=== PATIENT | male | born 1940 | race Caucasian/White ===

== ENCOUNTER 2019-10-17 14:36 | Inpatient (IN) | payer MEDICARE ==
[2019-10-17 15:43] LABS: #Eosinphils 0.2 thou/uL (0.0-0.7); #Lymphocytes 1.1 thou/uL (1.20-3.40); #Monocytes 0.4 thou/uL (0.11-0.59); #Neutrophils 4.5 thou/uL (1.40-6.50); %Basophils 0.4 % (0.0-1.0); %Lymphocytes 18.2 % (21.0-51.0); %Monocytes 6.5 % (0.0-10.0); %Neutrophils 71.9 % (42.0-75.0); Hemoglobin 11.7 g/dL (14.0-18.0); Mean Corpuscular HGB CONC 34.4 g/dL (32.0-36.0); Mean Corpuscular Hemoglobin 30.5 pg (27.0-31.0); Mean Corpuscular Volume 88.7 fL (78.0-98.0); Mean Platelet Volume 7.2 fL (7.4-10.4); Platelet Count 203 thou/uL (130-400); RBC Distribution Width 11.1 % (11.5-14.5); Red Blood Cell (RBC) Count 3.84 mill/uL (4.70-6.10); White Blood Cell (WBC) Count 6.3 thou/uL (4.8-10.8)
[2019-10-17 16:02] LABS: Anion Gap 11 mmol/L (10-20); BUN (Urea Nitrogen) 25 mg/dL (8.4-25.7); Calc. Creatinine Clearance 0 mL/min (70-130); Carbon Dioxide 30 mmol/L (23-31); Chloride 102 mmol/L (98-107); Estimated GFR-MDRD 72; Glucose 225 mg/dL (83-110); Potassium 4.6 mmol/L (3.5-5.1); Sodium 138 mmol/L (136-145)
--- NOTE | 2019-10-17 16:13 | RAD ---
Exam:3 views left foot HISTORY: Evaluate for osteomyelitis. COMPARISON: None FINDINGS: Amputation of the first and second digit. There is soft tissue swelling and subcutaneous em physema at the distal aspect of the first and second digit. There are chronic destructive changes involving the proximal interphalangeal joint space of the third digit, distal interphalangeal joint space of the fourth digit and metatarsophalangeal joint space of the third and fourth digit. There is soft tissue swelling involving the fifth digit. Subtle lucency is noted along the fifth meta tarsal head and proximal aspect of the proximal phalanx of the fifth digit. Questionable soft tissue ulceration of the distal aspect of the fifth digit. . Lisfranc alignment is maintained. No evidence of a midfoot or hindfoot fracture IMPRESSION: 1. Possible osteomyelitis and cellulitis involving the fifth digit as described above. 2. Presumed chronic changes involving the first through fourth digit. 2. Questionable subcutaneous emphysema along the distal aspect of the first and second digit. Transcribed Date/Time: 10/17/2019 5:11 PM
--- NOTE | 2019-10-17 16:44 | PDOC.FM ---
- Objective Result Diagrams: 10/17/19 15:35 10/17/19 15:35
--- NOTE | 2019-10-17 16:51 | PDOC.FPRHP ---
- History of Present Illness Chief Complaint: Left foot ulcer History of Present Illness: Patient is a 79 y/o male PMH significant for DM2, HTN, HLD, and a HX of [place] treated with CABG treated with AICD and Placemaker placement who presents to the ED for left foot pain. The patient states that he scraped his left 4th toe several weeks ago and that his toe slowly "got infected". He states that it turned black and oozed red blood from time to time, but never caused severe pain. He was unsure if it had a bad smell. He does not check his feet often and could not comment on if he had noticed any erythema or streaking. He admits to occasional pain in his foot that is slightly increased from baseline, but denies any fevers, chills, N/V, ABD pain or recent falls / difficulty walking. The patient states that he had a seen a surgeon FABIANA Shi and was supposed to have it amputated last week, but that he missed his appointment and that he hoped that "we could take care of it." The patient had all of the toes on his right foot and the 1st and and 2nd toes on his left foot previously amputated. ED Course: BMP: Significant for Glucse (225) CBC: Significant for H.7 / Hct 34.1 Lactic Acid: 0.9 Wound Cultures: Pending X-Ray: Osteomyelitis and emphysema of the 5th toe, chronic changes in the 4th toe. - Allergies/Adverse Reactions Allergies Allergy/AdvReac Type Severity Reaction Status Date / Time cephalexin [From Keflex] Allergy Verified 10/18/19 06:13 - Home Medications Medication Instructions Recorded Confirmed Type Aspirin [Ecotrin Low Strength] 81 mg PO DAILY 03/11/17 10/17/19 History Carvedilol [Coreg] 12.5 mg PO BID 03/11/17 10/17/19 History Lovastatin 20 mg PO QPM- 03/11/17 10/17/19 History Multivitamin [Daily Multiple 1 tab PO DAILY 03/11/17 10/17/19 History Vitamin] glipiZIDE [Glucotrol] 10 mg PO BID 03/11/17 10/17/19 History metFORMIN HCl 1,000 mg PO BID- 03/11/17 10/17/19 History - History PMHx: DMII, Hx of Prostate Cancer s/p Radiation, HLD, HTN PSHx: Multiple Toe Amputations, CABG, AICD/Pacemaker Placement FHx: DMII (Father), Lung Cancer (Mother) Social: Former smoker (Quit in 1983), Denies alcohol, drug use. Retired - used to work for the [employer] - Review of Systems General: denies: fever/chills, fatigue Respiratory: reports: shortness of breath. denies: cough Cardiovascular: denies: chest pain, edema Gastrointestinal: denies: nausea, vomiting, abdominal pain Skin: reports: lesions (foot ulcer) Musculoskeletal: reports: pain, stiffness Neurological: reports: other (Patient denied a Hx of traumatic falls) - Vital signs BP: 153/91 HR: 80 RR: [18] Tmax: [97.7] Pox: 100% on Room Air Wt: [65 kg] - Physical Exam Constitutional: NAD, awake, alert and oriented, well developed HEENT: normocephalic and atraumatic, PERRLA, conjunctiva clear, no scleral icterus, grossly normal vision, grossly normal hearing, normal nasal mucosa, MMM Neck: supple, FROM, trachea midline, no bruits Chest: no-tender to palpation, no lesions Heart: RRR, normal S1/S2, no murmurs/rubs/gallops, pulses present (+2 at Radial Arteries. Popliteal Pulse +2 on right - absent on left), no edema Lungs: CTAB, no respiratory distress, good air movement, no rales/rhonchi, no wheezing, no retractions Abdomen: soft, non-tender, bowel sounds present, no masses/distention, no hernias Musculoskeletal: ROM grossly normal, other (See HPI for multiple MSK abnormalities) Neurological: no focal deficit, CN II-XII intact Skin: other (Left 4th toe appeared black - no obvious drainage or bleeding. Minimal TTP. Foul odor.) Psychiatric: normal mood and affect, intact recent and remote memory FMR H&P: Results - Labs Result Diagrams: 10/17/19 15:35 10/17/19 15:35 Lab results: WBC 6.3 thou/uL (4.8-10.8) 10/17/19 15:35 Hgb 11.7 g/dL (14.0-18.0) L 10/17/19 15:35 Hct 34.1 % (42.0-52.0) L 10/17/19 15:35 MCV 88.7 fL (78.0-98.0) 10/17/19 15:35 Plt Count 203 thou/uL (130-400) 10/17/19 15:35 Neutrophils % 71.9 % (42.0-75.0) 10/17/19 15:35 Sodium 138 mmol/L (136-145) 10/17/19 15:35 Potassium 4.6 mmol/L (3.5-5.1) 10/17/19 15:35 Chloride 102 mmol/L (98-107) 10/17/19 15:35 Carbon Dioxide 30 mmol/L (23-31) 10/17/19 15:35 BUN 25 mg/dL (8.4-25.7) 10/17/19 15:35 Creatinine 1.01 mg/dL (0.7-1.3) 10/17/19 15:35 Glucose 225 mg/dL (83-110) H 10/17/19 15:35 Lactic Acid 0.9 mmol/L (0.5-2.2) 10/17/19 15:35 Calcium 9.0 mg/dL (7.8-10.44) 10/17/19 15:35 - Radiology Interpretation Other Status: image reviewed by me, report reviewed by me (See ED Course) FMR H&P: A/P - Problem List (1) HTN (hypertension) Current Visit: Yes Status: Acute Code(s): I10 - ESSENTIAL (PRIMARY) HYPERTENSION (2) HLD (hyperlipidemia) Current Visit: Yes Status: Acute Code(s): E78.5 - HYPERLIPIDEMIA, UNSPECIFIED (3) Diabetes mellitus type 2 with complications, uncontrolled Current Visit: Yes Status: Acute Code(s): E11.8 - TYPE 2 DIABETES MELLITUS WITH UNSPECIFIED COMPLICATIONS; E11.65 - TYPE 2 DIABETES MELLITUS WITH HYPERGLYCEMIA (4) Osteomyelitis Current Visit: Yes Status: Acute Code(s): M86.9 - OSTEOMYELITIS, UNSPECIFIED (5) CAD (coronary artery disease) Current Visit: Yes Status: Acute Code(s): I25.10 - ATHSCL HEART DISEASE OF [place] CORONARY ARTERY W/O ANG PCTRS (6) PVD (peripheral vascular disease) Current Visit: Yes Status: Acute Code(s): I73.9 - PERIPHERAL VASCULAR DISEASE, UNSPECIFIED - Plan Patient is a 79 y/o male with a PMH significant for poorly controlled DM2 who presents to the ED with left foot pain. 1. Osteomyelitis -Confirmed via imaging - no additional imaging required -Patient was afebrile w/o an elevated WBC -Lactic Acid: 0.9 -ESR: Pending -Surgery: Consulted, planning to operate this PM or tomorrow AM -LR @ 100 ml/hr -s/p Zosyn and Vancomycin - will continue per Surgery recs -Plan for Wound Cultures following surgical intervention -PT/OT: Consulted -Orthotic Shoe Consult: Pending 2. DM2 -Patient states that his BG is typically between 110-140 -Blood Glucose 225 on admission -HgA1C: Pending -C-Peptide: Pending -Mild SSI - will hold home Metformin and Glipizide for now -Accuchecks Q4H -Hypoglycemia Protocol 3. HTN -Continue home medication regimen 4. HLD -Continue home medication regimen 5. CAD -Continue home medication regimen 6. PVD -Likely contributing factor to #1 -MAR: Pending PCP: CC Code: Full Activity: Ad ray w/ Chair Diet: NPO - CC on 10/17 VTE PPx: SCDs - Holding Anticoagulation until after Surgery Dispo: Patient is currently stable and admitted to the Medical Floor for Osteomyelitis. Will plan for Surgery this PM or tomorrow AM depending on Surgery availability. Await labs and cultures as per above and continue to manage chronic medical conditions. Expected LOS < 48H. FMR H&P: Upper Level - Pertinent history 79yo male with uncontrolled DMII presents with left foot ulcer that first appeared 2 months ago, 2 weeks ago became infected. Saw a surgeon Dr Pham in [place] 1 week ago and reports he had a piece of bone removed at that time. He recommended an amputation but pt was unable to arrange transportation back to surgeon. Reports pain in foot and purulent discharge. Denies fever, chills. - Plan Date/Time: 10/17/19 1649 PE: General: NAD Pulm: CTA B/l, No resp distress CV: RRR, no murmurs Abdomen: Nontender Extremities: Left foot with Amputations of first 2 digits. 4th toe malodorous, black. Not tender to palpation. No purulent discharge. No palpable dorsalis pedis Right foot: Undetectable dorsalis pedis pulse. Amputations on digits 1-5 A/P: Arterial insuff ulcer with likely osteomyelitis - Likely arterial insufficiency ulcer after minor trauma to toe and inability to meet demands of healing tissue that has lead to osteomyelitis - Xray with possible osteomyelitis and cellulitis involving the 5th digit, chronic changes of 4th digit. Questionable subQ emphysema along distal aspect of first 2 digits. Concerning for gangrene - Nml WBC, VSS. - s/p Zosyn in the ED. Will continue and add Vanc - Will obtain MAR, ordered ESR - General Surgery, Dr Mcgovern consulted from ED - Admit to surgery floor, NPO awaiting Dr Kim recs DMII - Will check A1c. NPO. Accuchecks q4hr until CC diet placed. Hypoglycemic protocol ordered. Continue home medications. I, Kelly Luna, have evaluated this patient and agree with findings/plan as outlined by director international resident. Pertinent changes/additions are listed here. Addendum - Attending - Attending Attestation Date/Time: 10/18/19 0900 I personally evaluated the patient and discussed the management with Dr. Vigil. I agree with the History, Examination, Assessment and Plan documented above with any addition or exceptions noted below.
[2019-10-17] MEDS ORDERED: Piperacillin/Tazobactam 3.375 GM VIAL ONE (17:06)
[2019-10-17] MEDS ORDERED: Vancomycin HCl 1.25 GM in Sodium Chloride 0.9% 250 ML 250 ML IVPB SCH (18:30)
[2019-10-17] MEDS ORDERED: HumaLOG 300 UNITS/3 ML VIAL SC PRN ×2 (18:46→21:31)
--- NOTE | 2019-10-17 20:54 | PDOC.BPN ---
- Brief Progress Note Date/Time: 10/17/192052 I personally evaluated the patient and discussed the management with Dr. Vigil. H&P is pending. I agree with the History, Examination, Assessment and Plan as discussed.
[2019-10-17] MEDS ORDERED: Dextrose 5% in Water 1,000 ML IV PRN (21:31)
[2019-10-17] MEDS ORDERED: Dextrose 50% Abboject 50 ML SYRINGE SLOW IVP PRN (21:31)
[2019-10-17] MEDS ORDERED: Acetaminophen 325 MG TAB PO PRN (21:31)
[2019-10-17 21:43] VITALS: BMI 23.4
[2019-10-17 22:00] LABS: Hemoglobin A1c 6.7 % (4.0-6.0)
[2019-10-17] MEDS: Famotidine 20 MG TAB PO SCH (22:46)
[2019-10-17] MEDS: HumaLOG 300 UNITS/3 ML VIAL SC PRN (22:46)
[2019-10-17] MEDS: Piperacillin/Tazobactam 3.375 GM in Sodium Chloride 0.9% 100 ML IVPB SCH (22:57)
--- NOTE | 2019-10-18 00:11 | CON ---
DATE OF CONSULTATION: HISTORY OF PRESENT ILLNESS: Stephen Francisco is a 79-year-old male, who lives near [place], [place], has had a previous amputation of his left first and second toes done elsewhere. He has had a right transmetatarsal amputation. He has remaining left 3rd, 4th and 5th toes with his 4th toe gangrene. X-ray obtained reveal osteomyelitis of left 4th toe with some soft tissue changes. Physically, he has a strongly dopplerable dorsalis pedis, and posterior tibial pulses. He has gangrene of left 4th toe. There is minimal cellulitis. Plan is to amputate the left 3rd, 4th and 5th toes with primary closure and wound left open for healing and physical findings. He desires amputation of the 3rd and 5th toes due to acknowledgement that these will cause problems up the road. He has not had problems with his TMA right foot. Since that was done, he wants to definitively get rid of these toes. ALLERGIES: CEPHALEXIN. SOCIAL HISTORY: Tobacco cessation in 1983. Alcohol, rarely. MEDICATIONS: 1. Metformin 1000 b.i.d. 2. Glipizide 10 b.i.d. 3. Sacubitril/valsartan 2 tablets b.i.d. 4. Actos 15 daily. 5. Multivitamins daily. 6. Lovastatin 20 mg a day. 7. Vitamin B12. 8. Carvedilol 6.25 mg b.i.d. 9. Beta-carotene. 10. Aspirin 81 mg a day. PAST SURGICAL HISTORY: Coronary artery bypass grafting, four vessels, 13 years ago in [place]. He had a left leg saphenous vein harvest. He has a pacemaker defibrillator in left chest. He has had prostate cancer and radiation therapy. He had colonoscopy just over a year ago in [place]. FAMILY HISTORY: Father had diabetes. Mother had lung cancer. The patient was incarcerated until 2 years ago. He has been 10 years incarcerated. He is 2 years out of custodial. 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 REVIEW OF SYSTEMS: Ten-point noncontributory. PHYSICAL EXAMINATION: VITAL SIGNS: Blood pressure 161/74, pulse 80. HEAD, EARS, EYES, NOSE, AND THROAT: Unremarkable. LUNGS: Clear to auscultation. CARDIAC: Regular rate and rhythm without murmur or gallop. ABDOMEN: Soft and nontender. EXTREMITIES: Palpable femoral pulses bilaterally. Strongly palpable dorsalis pedis, and posterior tibial pulses both feet. Transmetatarsal amputation of right foot well healed. Left foot, previous amputation of 1st and second toe, gangrene in left 4th toe, minimal cellulitis. LABORATORY DATA: White count 6, hemoglobin 11.7. Basic metabolic profile normal. Glucose 225. ASSESSMENT AND PLAN: 1. Dry gangrene, left fourth toe. We would plan amputation of left third, fourth and fifth toes tomorrow. He understands risks, benefits, and consents. 2. Coronary artery disease, stable. 3. Pacemaker defibrillator present. 4. Diabetes mellitus. 5. Hypertension. 6. Elevated cholesterol. Job ID: [id number]
[2019-10-18] MEDS: Carvedilol 6.25 MG TAB PO SCH ×2 (05:24→20:43)
[2019-10-18] MEDS: Piperacillin/Tazobactam 3.375 GM in Sodium Chloride 0.9% 100 ML IVPB SCH ×4 (05:25→23:17)
--- NOTE | 2019-10-18 06:46 | PDOC.FM ---
- Subjective Subjective: Patient was resting comfortably in his hospital bed at the time of evaluation. He denied any acute overnight events such as fevers, chills, N/V, CP or SOB. He stated that his foot pain had not worsened acutely. - Objective Vital Signs & Weight: Vital Signs (12 hours) Temp Pulse Resp BP BP Pulse Ox 10/18/19 05:24 163/80 H 10/18/19 04:29 97.9 F 67 16 163/80 H 98 10/17/19 23:42 98.0 F 67 18 153/74 H 95 10/17/19 20:30 98.0 F 92 17 146/80 H 95 Weight Weight 63.911 kg I&O: 10/16/19 10/17/19 10/18/19 06:59 06:59 06:59 Intake Total 900 Balance 900 Result Diagrams: 10/17/19 15:35 10/17/19 15:35 Phys Exam - Physical Examination Constitutional: NAD HEENT: moist MMs, sclera anicteric, oral pharynx no lesions Neck: supple, full ROM Respiratory: no rales, no rhonchi Scattered wheezes Cardiovascular: RRR, no significant murmur, no rub Gastrointestinal: soft, non-tender, no distention, positive bowel sounds Musculoskeletal: no edema Unable to palpate pulses in distal extremities Neurological: non-focal, moves all 4 limbs Psychiatric: normal affect Deviation from normal: No change in LLE from previous exam Dx/Plan (1) HTN (hypertension) Code(s): I10 - ESSENTIAL (PRIMARY) HYPERTENSION Status: Acute (2) HLD (hyperlipidemia) Code(s): E78.5 - HYPERLIPIDEMIA, UNSPECIFIED Status: Acute (3) Diabetes mellitus type 2 with complications, uncontrolled Code(s): E11.8 - TYPE 2 DIABETES MELLITUS WITH UNSPECIFIED COMPLICATIONS; E11.65 - TYPE 2 DIABETES MELLITUS WITH HYPERGLYCEMIA Status: Acute (4) Osteomyelitis Code(s): M86.9 - OSTEOMYELITIS, UNSPECIFIED Status: Acute (5) CAD (coronary artery disease) Code(s): I25.10 - ATHSCL HEART DISEASE OF [place] CORONARY ARTERY W/O ANG PCTRS Status: Acute (6) PVD (peripheral vascular disease) Code(s): I73.9 - PERIPHERAL VASCULAR DISEASE, UNSPECIFIED Status: Acute - Plan Plan: Patient is a 79 y/o male with a PMH significant for poorly controlled DM2 who presents to the ED with left foot pain. 1. Osteomyelitis -Confirmed via X-Ray - no additional imaging required -Patient was afebrile w/o an elevated WBC -Lactic Acid: 0.9 -ESR: Pending -Surgery: Consulted, planning to operate this AM -LR @ 100 ml/hr -s/p Zosyn and Vancomycin - will continue per Surgery recs -Plan for Wound Cultures following surgical intervention -PT/OT: Consulted -Orthotic Shoe Consult: Pending 2. DM2 -Patient states that his BG is typically between 110-140 -Blood Glucose 225 on admission -HgA1C: 6.7 -C-Peptide: Pending -Mild SSI - will hold home Glipizide for now -Accuchecks Q4H -Hypoglycemia Protocol 3. HTN -Continue home medication regimen 4. HLD -Continue home medication regimen 5. CAD -Continue home medication regimen 6. PVD -Likely contributing factor to #1 -MAR: Pending PCP: CC Code: Full Activity: Ad ray w/ Chair Diet: NPO - CC on 10/17 VTE PPx: SCDs - Holding Anticoagulation until after Surgery Dispo: Patient is currently stable and admitted to the Medical Floor for Osteomyelitis. Will plan for surgery today - await additional labs and cultures as per above and continue to manage chronic medical conditions. Expected LOS < 48H. Addendum - Attending - Attending Attestation Date/Time: 10/18/19 6065 I personally evaluated the patient and discussed the management with Dr. Vigil. I agree with the History, Examination, Assessment and Plan documented above with any addition or exceptions noted below.
[2019-10-18] MEDS ORDERED: Lactated Ringer's 1,000 ML IV SCH (08:00)
[2019-10-18] MEDS: Multivit, Therapeutic 1 TAB PO SCH (08:48)
[2019-10-18] MEDS: metFORMIN 500 MG TAB PO SCH ×2 (08:48→17:01)
[2019-10-18] MEDS: Famotidine 20 MG TAB PO SCH ×2 (08:48→20:42)
[2019-10-18] MEDS: Aspirin 81 mg Enteric Coated Tablet PO SCH (08:48)
[2019-10-18] MEDS ORDERED: PROPOFOL 200 MG/20 ML VIAL ONE (10:30)
[2019-10-18] MEDS ORDERED: Bupivacaine HCl 0.5%/Epinephrine 1:200,000/PF 30 ml Vial ONE (10:30)
[2019-10-18] MEDS ORDERED: Fentanyl 100 MCG/2 ML VIAL ONE (11:22)
[2019-10-18] MEDS ORDERED: Midazolam HCl 2 mg/2 ml Vial ONE (12:55)
[2019-10-18] MEDS ORDERED: Simvastatin 20 MG TAB PO SCH (17:00)
[2019-10-18] MEDS ORDERED: Vancomycin HCl 1 GM in Premix Bag 1 BAG IVPB SCH (17:00)
--- NOTE | 2019-10-18 17:17 | OP ---
DATE OF PROCEDURE: 10/18/2019 PREOPERATIVE DIAGNOSIS: Diabetic gangrene, left fourth toe, previous amputation of left first and second toe. POSTOPERATIVE DIAGNOSIS: Diabetic gangrene, left fourth toe, previous amputation of left first and second toe. PROCEDURES PERFORMED: Transmetatarsal amputation of left foot with amputation of toes 3, 4, 5, and metatarsals this hospitalization primary closure. ANESTHESIA: Regional, TIVA. DESCRIPTION OF PROCEDURE: The patient was taken to the operating room, where under regional, TIVA anesthesia, left lower extremity was prepared and draped in routine fashion. Incision was made, preserving as much skin as possible, amputating the left 3rd, 4th and 5th toes, carried down the skin and subcutaneous tissue, resecting the phalanx and the metatarsals with rongeurs and bone cutters, irrigated wound, debriding connective tissue sharply, resecting good blood supply noted. Wound irrigated. Good hemostasis ensured. Subcutaneous tissue was approximated with 3-0 Monocryl, skin with 3-0 Prolene. Sterile dressing was applied. The patient will be discharged home tomorrow, 10/19/2019. He can remove his dressings 10/21/2019 and begin washing the wound daily with soap and water and apply antibiotic ointment, Telfa, and wrap. He will be sent home with orthotic shoe. Follow up in my office in 2 weeks. Job ID: [id number]
[2019-10-18] MEDS: HumaLOG 300 UNITS/3 ML VIAL SC PRN (20:46)
[2019-10-19] MEDS: traMADol HCl 50 MG TAB PO PRN ×3 (02:46→11:06)
[2019-10-19] MEDS: Acetaminophen 500 MG TAB PO PRN ×2 (05:31→12:06)
[2019-10-19] MEDS: Piperacillin/Tazobactam 3.375 GM in Sodium Chloride 0.9% 100 ML IVPB SCH ×2 (05:32→11:03)
[2019-10-19] MEDS ORDERED: Ciprofloxacin 500 MG TAB PO SCH (06:00)
--- NOTE | 2019-10-19 06:25 | PDOC.FM ---
- Subjective Subjective: Patient was resting comfortably in his hospital bed at the time of evaluation. He denied shannan cute overnight events such as SOB, CP or N/V. He stated that he was ready to go home. - Objective Vital Signs & Weight: Vital Signs (12 hours) Temp Pulse Resp BP BP Pulse Ox 10/19/19 04:20 98.2 F 77 18 165/84 H 95 10/18/19 23:22 98.7 F 63 16 115/55 L 96 10/18/19 20:43 159/75 H 10/18/19 19:33 98.0 F 83 18 159/75 H 96 Weight Weight 63.911 kg I&O: 10/17/19 10/18/19 10/19/19 06:59 06:59 06:59 Intake Total 900 600 Balance 900 600 Result Diagrams: 10/19/19 08:54 10/19/19 08:54 Phys Exam - Physical Examination Constitutional: NAD HEENT: moist MMs, sclera anicteric, oral pharynx no lesions Neck: full ROM Respiratory: no wheezing, no rales, no rhonchi, clear to auscultation bilateral Cardiovascular: RRR, no significant murmur, no rub Gastrointestinal: soft, non-tender, no distention, positive bowel sounds Musculoskeletal: no edema Bandage in place over RLE - minimal strike-through noted without streaking Neurological: non-focal, moves all 4 limbs Psychiatric: normal affect Skin: no rash Dx/Plan (1) HTN (hypertension) Code(s): I10 - ESSENTIAL (PRIMARY) HYPERTENSION Status: Acute (2) HLD (hyperlipidemia) Code(s): E78.5 - HYPERLIPIDEMIA, UNSPECIFIED Status: Acute (3) Diabetes mellitus type 2 with complications, uncontrolled Code(s): E11.8 - TYPE 2 DIABETES MELLITUS WITH UNSPECIFIED COMPLICATIONS; E11.65 - TYPE 2 DIABETES MELLITUS WITH HYPERGLYCEMIA Status: Acute (4) Osteomyelitis Code(s): M86.9 - OSTEOMYELITIS, UNSPECIFIED Status: Acute (5) CAD (coronary artery disease) Code(s): I25.10 - ATHSCL HEART DISEASE OF [place] CORONARY ARTERY W/O ANG PCTRS Status: Acute (6) PVD (peripheral vascular disease) Code(s): I73.9 - PERIPHERAL VASCULAR DISEASE, UNSPECIFIED Status: Acute - Plan Plan: Patient is a 79 y/o male with a PMH significant for poorly controlled DM2 who presents to the ED with left foot pain. 1. Osteomyelitis -Likely complicated by polymicrobial infection - Gangrene suspected -Confirmed via X-Ray - no additional imaging performed -Patient was afebrile w/o an elevated WBC -Lactic Acid: 0.9 -ESR: Pending -Surgery: Amputation performed on 10/18 w/ ABx augmented to include Bactrim and Cipro - recs appreciated -LR @ 100 ml/hr -s/p Zosyn and Vancomycin - will continue per Surgery recs -Wound Cultures: Pending -PT/OT: Consulted -Orthotic Shoe Consult: Pending 2. DM2 -Patient states that his BG is typically between 110-140 -Blood Glucose 225 on admission -HgA1C: 6.7 -C-Peptide: Pending -Mild SSI - will hold home Glipizide for now -Accuchecks Q4H -Hypoglycemia Protocol 3. HTN -Continue home medication regimen 4. HLD -Continue home medication regimen 5. CAD -Continue home medication regimen 6. PVD -Likely contributing factor to #1 -MAR: Pending PCP: CC Code: Full Activity: Ad ray w/ Chair Diet: NPO - CC on 10/17 VTE PPx: SCDs - Holding Anticoagulation until after Surgery Dispo: Patient is currently stable and admitted to the Medical Floor for Osteomyelitis. No complications noted in Surgery op note - await cultures as per above with ABx. Continue to manage chronic medical conditions. Await PT/OT eval and recs. Expected LOS < 48H. Addendum - Attending - Attending Attestation Date/Time: 10/19/19 1228 I personally evaluated the patient and discussed the management with Dr. Vigil. I agree with the History, Examination, Assessment and Plan documented above with any addition or exceptions noted below. S/p removal digis 3-5. Doing well. BS controlled. D/c IV Abx and complete oral regimen per surgery.
[2019-10-19] MEDS: Aspirin 81 mg Enteric Coated Tablet PO SCH (07:58)
[2019-10-19] MEDS: Famotidine 20 MG TAB PO SCH (07:58)
[2019-10-19] MEDS: Carvedilol 6.25 MG TAB PO SCH (07:58)
[2019-10-19] MEDS: metFORMIN 500 MG TAB PO SCH (07:58)
[2019-10-19] MEDS: Multivit, Therapeutic 1 TAB PO SCH (07:59)
[2019-10-19] MEDS ORDERED: Sulfameth/Trimethoprim DS 800-160mg TAB PO SCH (09:00)
[2019-10-19 09:07] LABS: #Eosinphils 0.2 thou/uL (0.0-0.7); #Lymphocytes 0.5 thou/uL (1.20-3.40); #Monocytes 0.5 thou/uL (0.11-0.59); #Neutrophils 5.2 thou/uL (1.40-6.50); %Basophils 0.6 % (0.0-1.0); %Eosinophils 3.7 % (0.0-10.0); %Monocytes 8.4 % (0.0-10.0); %Neutrophils 80.4 % (42.0-75.0); Hemoglobin 11.4 g/dL (14.0-18.0); Mean Corpuscular Hemoglobin 29.6 pg (27.0-31.0); Mean Corpuscular Volume 89.9 fL (78.0-98.0); Mean Platelet Volume 7.3 fL (7.4-10.4); Platelet Count 143 thou/uL (130-400); RBC Distribution Width 11.1 % (11.5-14.5); Red Blood Cell (RBC) Count 3.83 mill/uL (4.70-6.10); White Blood Cell (WBC) Count 6.5 thou/uL (4.8-10.8)
[2019-10-19 09:28] LABS: Anion Gap 11 mmol/L (10-20); BUN (Urea Nitrogen) 16 mg/dL (8.4-25.7); Calc. Creatinine Clearance 54 mL/min (70-130); Calcium 8.6 mg/dL (7.8-10.44); Carbon Dioxide 26 mmol/L (23-31); Chloride 104 mmol/L (98-107); Estimated GFR-MDRD 70; Glucose 151 mg/dL (83-110); Potassium 4.8 mmol/L (3.5-5.1); Sodium 136 mmol/L (136-145)
[2019-10-19 11:52] VITALS: BP 169/74; TEMP 97.3
--- NOTE | 2019-10-20 13:15 | DIS ---
DATE OF ADMISSION: 10/17/2019 DATE OF DISCHARGE: 10/19/2019 RESIDENT: Negrito Vigil MD. ADMITTING ATTENDING: Jimbo Lee MD. DISCHARGE ATTENDING: Case Salgado MD. CONSULTS: Dr. Enzo Mcgovern, general surgery. PROCEDURES: 1. Transmetatarsal amputation of left foot with amputation of toes 3, 4 and 5 and metatarsals. 2. Three-view left foot x-ray showing possible osteomyelitis and cellulitis involving the 5th digit, presumed chronic changes involving the 1st through 4th digit, questionable subcutaneous emphysema along the distal aspect of the first and 2nd digit. 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 SECONDARY DIAGNOSES: 1. Diabetes type 2. 2. Hypertension. 3. Hyperlipidemia. 4. Coronary artery disease. 5. Peripheral vascular disease. DISCHARGE MEDICATIONS: 1. Ciprofloxacin 500 mg p.o. b.i.d. for 10 days. 2. Bactrim 1 tab p.o. b.i.d. for 10 days. 3. Tramadol 50 mg p.o. q.4 p.r.n. 30 tabs. DISCONTINUED MEDICATIONS: 1. Tylenol 1000 mg p.o. q.6 hours. 2. Aspirin 81 mg p.o. daily. 3. Carvedilol 12.5 mg p.o. b.i.d. 4. Ciprofloxacin 500 mg p.o. b.i.d. 5. Famotidine 20 mg p.o. b.i.d. 6. Insulin human lispro, mild sliding scale. 7. Insulin human lispro, bedtime sliding scale. 8. Metformin 1000 mg p.o. b.i.d. 9. Multivitamins 1 tab p.o. daily. 10. Simvastatin 10 mg p.o. daily. 11. Tramadol 50 mg p.o. q.4 hours p.r.n. 12. Bactrim 1 tab p.o. b.i.d. HOSPITAL COURSE: The patient is a 79-year-old male with a past medical historysignificant for diabetes type 2, hypertension, hyperlipidemia, history of NM treated with CABG, AICD and pacemaker placement, who presents to the ED for left foot pain. The patient states that he scraped his left toe several weeks ago and that his toe slowly got infected. He states that they turned black and ooze red blood from time to time and never cause severe pain. He was unsure, if it had a bad smell. He does not check his feet often and could not comment on if he had noticed any erythema or streaking up his leg. He admitted to occasional pain in his foot that was slightly increased from baseline, but denies fevers, chills, nausea, vomiting, abdominal pain, or recent falls/difficulty walking. The patient states that he had seen a nurse surgeon in [place], [place] and was supposed to have it amputated last week. However, he missed his appointment and he hoped that the surgeon at the [facility] could "take care of it." The patient had all of the toes on his right foot and the first and second toes on his left foot previously amputated in the ED. The patient was found to have a glucose that was elevated at 225, as well as a hemoglobin of 11.7, hematocrit of 34.1. Lactic acid was 0.9. Wound cultures were positive for Stenotrophomonas maltophilia. An x-ray was performed, the results of which are documented elsewhere. The patient was subsequently evaluated for suspected osteomyelitis, likely secondary to gangrene by the general surgeon on-call, who subsequently performed an amputation that is discussed elsewhere in this document. The patient was evaluated by Physical therapy and Occupational therapy and was fitted for an orthotic and subsequently prepped for discharge. Prior to discharge, the patient had vital signs recorded as temperature 97.3, pulse 67 beats per minute, blood pressure 169/74, respirations 16 per minute, oxygen saturation 97% on room air. LABORATORY DATA: Laboratory analysis revealed a white blood cell count of 6.5, hemoglobin 11.4, hematocrit 34.4, platelet count 143. Chem panel revealed a sodium of 136, potassium 4.8, chloride 104, carbon dioxide 26, BUN 16, creatinine 1.03, glucose 151. Hemoglobin A1c was 6.7, C-peptide was 2.3, calcium 8.6. DISPOSITION: Stable. DISCHARGE INSTRUCTIONS: 1. Location: Home. 2. Diet: Carbohydrate conscious. 3. Activity: As tolerated. 4. Followup: The patient was encouraged to follow up with his primary care physician in 1 to 2 weeks. Additionally, the patient was encouraged to follow up with Dr. Enzo Powell in 1 to 2 weeks. Job ID: [id number]
== END 2019-10-19 16:39 | disposition home or self-care (01) | DRG 240 ==
LOC: ERS 14:36 → OBSVTOIN 17:10 → T4-B 17:10
PROVIDERS: ADMIT Family Medicine; ATTEND Family Medicine
PROC: 0Y6N0Z9 Detachment at Left Foot, Partial 1st Ray, Open Approach (ICD-10-PCS; principal; 2019-10-18)
PROC: 0Y6N0ZB Detachment at Left Foot, Partial 2nd Ray, Open Approach (ICD-10-PCS; 2019-10-18)
PROC: 0Y6N0ZC Detachment at Left Foot, Partial 3rd Ray, Open Approach (ICD-10-PCS; 2019-10-18)
PROC: 0Y6N0ZD Detachment at Left Foot, Partial 4th Ray, Open Approach (ICD-10-PCS; 2019-10-18)
PROC: 0Y6N0ZF Detachment at Left Foot, Partial 5th Ray, Open Approach (ICD-10-PCS; 2019-10-18)
DX: E11.52 Type 2 diabetes mellitus with diabetic peripheral angiopathy with gangrene (principal); I96 Gangrene, not elsewhere classified; M86.8X7 Other osteomyelitis, ankle and foot; L03.116 Cellulitis of left lower limb; I10 Essential (primary) hypertension; E78.5 Hyperlipidemia, unspecified; E11.65 Type 2 diabetes mellitus with hyperglycemia; E11.69 Type 2 diabetes mellitus with other specified complication; I25.10 Atherosclerotic heart disease of native coronary artery without angina pectoris; Z79.84 Long term (current) use of oral hypoglycemic drugs; Z95.810 Presence of automatic (implantable) cardiac defibrillator; I25.2 Old myocardial infarction; Z95.1 Presence of aortocoronary bypass graft; Z87.891 Personal history of nicotine dependence; Z88.1 Allergy status to other antibiotic agents; Z83.3 Family history of diabetes mellitus; Z80.1 Family history of malignant neoplasm of trachea, bronchus and lung; E11.621 Type 2 diabetes mellitus with foot ulcer
CPT/HCPCS: 36415; 36416; 80048; 83036; 83605; 84681; 85025; 85652; 87070; 87077; 87186; 87205; 88305; 88311; 93005; 93010; 96365; 96367; J0670; J2250; J2543; J2704; J3010; J3370; J3490; J7050

== ENCOUNTER 2019-10-25 04:57 | Observation (INO) | payer MEDICARE ==
[2019-10-25 07:48] VITALS: BMI 23.6
[2019-10-25] MEDS ORDERED: Prevnar 13-Val Conj/PF 0.5 ML SYRINGE IM ONE (08:15)
[2019-10-25] MEDS ORDERED: HumaLOG 300 UNITS/3 ML VIAL SC PRN (08:42)
[2019-10-25] MEDS ORDERED: Acetaminophen 325 MG TAB PO PRN (08:42)
[2019-10-25] MEDS ORDERED: Dextrose 50% Abboject 50 ML SYRINGE SLOW IVP PRN (08:42)
[2019-10-25] MEDS ORDERED: Dextrose 5% in Water 1,000 ML IV PRN (08:42)
[2019-10-25] MEDS ORDERED: Senokot S 8.6-50 MG TAB PO PRN (08:42)
[2019-10-25] MEDS ORDERED: traMADol HCl 50 MG TAB PO PRN (09:37)
[2019-10-25] MEDS ORDERED: Sulfameth/Trimethoprim DS 800-160mg TAB PO SCH (10:05)
[2019-10-25] MEDS ORDERED: Aspirin 81 mg Enteric Coated Tablet PO SCH (10:15)
[2019-10-25] MEDS ORDERED: metFORMIN 500 MG TAB PO SCH (10:54)
[2019-10-25] MEDS ORDERED: Ciprofloxacin 500 MG TAB PO SCH (11:00)
[2019-10-25] MEDS: Enoxaparin Sodium 30 MG/0.3 ML SYRINGE SC SCH (11:01)
[2019-10-25] MEDS: Sulfameth/Trimethoprim DS 800-160mg TAB PO SCH (11:01)
[2019-10-25] MEDS: Famotidine 20 MG TAB PO SCH ×2 (11:02→20:10)
--- NOTE | 2019-10-25 11:30 | PDOC.FPRHP ---
- History of Present Illness Chief Complaint: AMS History of Present Illness: Pt is a 79 yo M with pmh of DM type II, HTN, HLD, CAD, PVD, HFrEF with AICD, VA s/p CABG, Prostate CA s/p radiation who presents as a transfer from [facility] who had AMS and was found to be hypoglycemic. He does not remember anything until he woke up in the ambulance this morning. He said his must have called EMS. He said they checked his blood sugar and it was 43. ED Course: Pt was seen at [facility] where he presented with a blood sugar of 43. The patient blood work and imaging was remarkable for CT that was Neg, EKG that is V Paced, Cre of 1.35, and CK of 377. He was given an Amp of D50 and blood glucose increased from 43 to 173. - Allergies/Adverse Reactions Allergies Allergy/AdvReac Type Severity Reaction Status Date / Time cephalexin [From Keflex] Allergy Verified 10/18/19 06:13 - Home Medications Medication Instructions Recorded Confirmed Type Aspirin [Ecotrin Low Strength] 81 mg PO DAILY 03/11/17 10/25/19 History Carvedilol [Coreg] 12.5 mg PO BID 03/11/17 10/25/19 History Lovastatin 20 mg PO QPM- 03/11/17 10/25/19 History Multivitamin [Daily Multiple 1 tab PO DAILY 03/11/17 10/25/19 History Vitamin] glipiZIDE [Glucotrol] 10 mg PO BID 03/11/17 10/25/19 History metFORMIN HCl 1,000 mg PO BID- 03/11/17 10/25/19 History Acetaminophen [Tylenol Extra 1,000 mg PO Q6H PRN tab 10/18/19 10/25/19 Rx Strength] Ciprofloxacin [Cipro] 500 mg PO 0600,2000 #20 tab 10/18/19 10/25/19 Rx Sulfamethoxazole/Trimethoprim 1 tab PO BID #20 tab 10/18/19 10/25/19 Rx [Bactrim DS] traMADol HCl [Ultram] 50 mg PO Q4H PRN #30 tab 10/18/19 10/25/19 Rx - History PMHx: DM type II, HTN, HLD, CAD, PVD, HFrEF with AICD, VA s/p CABG, Prostate CA s/p radiation PSHx: CABG- 4 vessel, Tonsillectomy, Appendectomy, Amputation of all toes FHx: None Social: Smoked 3 PPD for 25 years quit in 1983. No alcohol or recreational drugs. - Review of Systems General: denies: fever/chills, weight/appetite/sleep changes Eyes: denies: vision changes ENT: denies: nasal congestion, rhinorrhea Respiratory: denies: cough, congestion, shortness of breath Cardiovascular: denies: chest pain, edema Gastrointestinal: denies: nausea, vomiting, diarrhea Skin: denies: rashes Musculoskeletal: denies: pain, tenderness Neurological: denies: numbness, weakness - Vital signs BP: 147/66 HR: 88 RR: 16 Tmax: 97.6 Pox: 100% on RA Wt: 64.773 kg - Physical Exam Constitutional: NAD, awake, alert and oriented HEENT: normocephalic and atraumatic, normal nasal mucosa, MMM, oropharynx clear Neck: supple, no LAD Heart: RRR, normal S1/S2, no murmurs/rubs/gallops Lungs: CTAB, no respiratory distress, good air movement, no rales/rhonchi, no wheezing Abdomen: soft, non-tender, bowel sounds present Musculoskeletal: normal structure, normal tone Neurological: CN II-XII intact Skin: no rash/lesions Heme/Lymphatic: no unusual bruising or bleeding, no purpura, no petechia Psychiatric: normal mood and affect FMR H&P: Results - EKG Interpretation EKG: V paced, no ST changes FMR H&P: A/P - Problem List (1) Hypoglycemia Current Visit: Yes Status: Acute Code(s): E16.2 - HYPOGLYCEMIA, UNSPECIFIED (2) Osteomyelitis Current Visit: No Status: Acute Code(s): M86.9 - OSTEOMYELITIS, UNSPECIFIED (3) PVD (peripheral vascular disease) Current Visit: No Status: Acute Code(s): I73.9 - PERIPHERAL VASCULAR DISEASE , UNSPECIFIED (4) KEMAR (acute kidney injury) Current Visit: Yes Status: Acute Code(s): N17.9 - ACUTE KIDNEY FAILURE, UNSPECIFIED (5) CAD (coronary artery disease) Current Visit: No Status: Acute Code(s): I25.10 - ATHSCL HEART DISEASE OF [place] CORONARY ARTERY W/O ANG PCTRS (6) Diabetes mellitus type 2 with complications, uncontrolled Current Visit: No Status: Acute Code(s): E11.8 - TYPE 2 DIABETES MELLITUS WITH UNSPECIFIED COMPLICATIONS; E11.65 - TYPE 2 DIABETES MELLITUS WITH HYPERGLYCEMIA (7) HLD (hyperlipidemia) Current Visit: No Status: Acute Code(s): E78.5 - HYPERLIPIDEMIA, UNSPECIFIED (8) HTN (hypertension) Current Visit: No Status: Acute Code(s): I10 - ESSENTIAL (PRIMARY) HYPERTENSION - Plan Patient is a 79 y/o male with a PMH significant for poorly controlled DM2 who presents to the ED with left foot pain. 1. Hypoglycemia in DM II * Home Meds: Glipizide & Metformin * Will hold Glipizide and start back at lower level * Continue Metformin * HgA1C: 6.7% last week * Mild SSI * Accuchecks Q4H * Hypoglycemia Protocol 2. Osteomyelitis & PVD * s/p amputation last week * Currently on Bactrim and Cipro * WC consulted * Will monitor * Currently no WBC 3. KEMAR Cre: 1.35 * Last week: 1.15 initial trended down to 1.03 * Will monitor 4. HLD * Continue home meds: Lovastatin 5. CAD * Continue home meds: ASA 6. HTN * Currently not on medications * Will monitor Code Status: Full Activity: Ambulate with Assist, Fall precautions Diet: CC 2000 VTE PPx: Lovenox 30 GI PPx: Famotidine PCP: Mary Cano Dispo: Medical obs, will monitor sugars and adjust medications. Likely d/c tomorrow. Expected LOS < 48H. FMR H&P: Upper Level - Pertinent history 79 y/o M PMHx DM2, HTN, HLD, CAD, PVD, HFrEF with AICD, VA s/p CABG, Prostate CA s/p radiation, recent amputation of 3 toes on L foot last week who presents as a transfer from [facility] for AMS. The patient reports that he remembers waking up in an ambulance and they told him his glucose had been low. It was as low as 43 and his called EMS. He got an amp of D50 and it improved to 100s. He is following with Dr. Mcgovern next week about his foot, but has not been changing the dressing. He is still taking abx from his cellulitis and osteo last week. - Pertinent findings Vitals: BP 120/67, HR 69, RR 20, Temp 98.1, O2 sat 97% on RA PE: Gen - alert, oriented, NAD HEENT - MMM CV - RRR Resp - CTAB MSK - L foot with dirty dressing in place Labs: BUN 37, Cr 1.35, Trop 0.03 - Plan Date/Time: 10/25/19 1127 I, Moira Gamble MD, PGY-3, have evaluated this patient and agree with findings/ plan as outlined by internal control specialist resident. Pertinent changes/additions are listed here. 1. Symptomatic Hypoglycemia Pt on glipizide 10mg BID and metformin. -Will hold glipizide today and restart it at 5mg BID. Will continue metformin -Glucose checks q4h with hypoglycemia protocol -CC diet 2. s/p L toe amputation 2/2 osteo -Continue abx -Consult wound care -Continue f/u with Dr. Mcgovern in 1 week 3. DM2 -Plan as above Other chronic medical conditions, see internal control specialist note Diet: CC Code Status: Full VTE ppx: Lovenox Dispo: Obs on medical, LOS< 48 hours Addendum - Attending - Attending Attestation Date/Time: 10/25/19 1186 I personally evaluated the patient and discussed the management with Dr. Lubin I agree with the History, Examination, Assessment and Plan documented above with any addition or exceptions noted below. Hypoglycemic episode that has resolved. only glucose lowering agent is glyburide. will hold for now and monitor overnight. Will need reduced dose at time of d/c. Wound care for recent foot surgery.
[2019-10-25] MEDS ORDERED: Dextrose 50 % In Water 50 ML SYRINGE IV SCH (16:45)
[2019-10-25] MEDS ORDERED: Non-Formulary Item 1 EACH (Lovastatin [Lovastatin] 20 MG) PO SCH (17:00)
[2019-10-25] MEDS ORDERED: Simvastatin 5 MG TAB PO SCH (17:00)
[2019-10-25] MEDS ORDERED: Non-Formulary Item 1 EACH (Metformin Hcl [Metformin Hcl] 1,000 MG) PO SCH (17:00)
[2019-10-25] MEDS: metFORMIN 500 MG TAB PO SCH (18:35)
[2019-10-25] MEDS: Ciprofloxacin 500 MG TAB PO SCH (20:10)
[2019-10-25] MEDS: Carvedilol 6.25 MG TAB PO SCH (20:10)
[2019-10-26] MEDS: Ciprofloxacin 500 MG TAB PO SCH (05:12)
[2019-10-26 05:40] LABS: #Basophils 0.1 thou/uL (0.0-0.2); #Eosinphils 0.5 thou/uL (0.0-0.7); #Lymphocytes 1.4 thou/uL (1.20-3.40); #Monocytes 0.6 thou/uL (0.11-0.59); #Neutrophils 3.4 thou/uL (1.40-6.50); %Basophils 1.1 % (0.0-1.0); %Eosinophils 8.1 % (0.0-10.0); %Monocytes 9.3 % (0.0-10.0); %Neutrophils 57.5 % (42.0-75.0); Hemoglobin 11.3 g/dL (14.0-18.0); Mean Corpuscular HGB CONC 33.1 g/dL (32.0-36.0); Mean Corpuscular Hemoglobin 30.1 pg (27.0-31.0); Mean Corpuscular Volume 90.9 fL (78.0-98.0); Mean Platelet Volume 7.7 fL (7.4-10.4); Platelet Count 204 thou/uL (130-400); RBC Distribution Width 11.6 % (11.5-14.5); Red Blood Cell (RBC) Count 3.77 mill/uL (4.70-6.10); White Blood Cell (WBC) Count 5.8 thou/uL (4.8-10.8)
[2019-10-26 06:00] LABS: Anion Gap 11 mmol/L (10-20); BUN (Urea Nitrogen) 27 mg/dL (8.4-25.7); Calc. Creatinine Clearance 50 mL/min (70-130); Calcium 8.8 mg/dL (7.8-10.44); Carbon Dioxide 22 mmol/L (23-31); Chloride 106 mmol/L (98-107); Estimated GFR-MDRD 62; Glucose 109 mg/dL (83-110); Potassium 5.2 mmol/L (3.5-5.1); Sodium 134 mmol/L (136-145)
--- NOTE | 2019-10-26 06:48 | PDOC.FM ---
- Subjective Subjective: He had some left heel pain, but it feels fine now. Bandages changed yesterday. He has been eating and drinking fine. He slept well overnight. No further complaints. - Objective MAR Reviewed: Yes Vital Signs & Weight: Vital Signs (12 hours) Temp Pulse Resp BP Pulse Ox 10/26/19 03:46 97.8 F 80 18 125/74 97 10/25/19 23:38 97.8 F 88 17 131/66 98 10/25/19 19:40 97.9 F 62 18 130/55 L 97 Weight Weight 64.773 kg I&O: 10/24/19 10/25/19 10/26/19 06:59 06:59 06:59 Intake Total 450 Balance 450 Result Diagrams: 10/26/19 05:22 10/26/19 05:22 Phys Exam - Physical Examination Constitutional: NAD HEENT: moist MMs, oral pharynx no lesions Neck: supple, full ROM Respiratory: no wheezing, no rales, no rhonchi, clear to auscultation bilateral Cardiovascular: RRR, no significant murmur, no rub Gastrointestinal: soft, non-tender, positive bowel sounds Musculoskeletal: no edema Decreased pulses in legs Neurological: moves all 4 limbs Psychiatric: normal affect Skin: no rash, normal turgor Dx/Plan (1) Hypoglycemia Code(s): E16.2 - HYPOGLYCEMIA, UNSPECIFIED Status: Acute (2) Osteomyelitis Code(s): M86.9 - OSTEOMYELITIS, UNSPECIFIED Status: Acute (3) PVD (peripheral vascular disease) Code(s): I73.9 - PERIPHERAL VASCULAR DISEASE, UNSPECIFIED Status: Acute (4) KEMAR (acute kidney injury) Code(s): N17.9 - ACUTE KIDNEY FAILURE, UNSPECIFIED Status: Acute (5) CAD (coronary artery disease) Code(s): I25.10 - ATHSCL HEART DISEASE OF [place] CORONARY ARTERY W/O ANG PCTRS Status: Acute (6) Diabetes mellitus type 2 with complications, uncontrolled Code(s): E11.8 - TYPE 2 DIABETES MELLITUS WITH UNSPECIFIED COMPLICATIONS; E11.65 - TYPE 2 DIABETES MELLITUS WITH HYPERGLYCEMIA Status: Acute (7) HLD (hyperlipidemia) Code(s): E78.5 - HYPERLIPIDEMIA, UNSPECIFIED Status: Acute (8) HTN (hypertension) Code(s): I10 - ESSENTIAL (PRIMARY) HYPERTENSION Status: Acute - Plan Plan: Patient is a 79 y/o male with a PMH significant for poorly controlled DM2 who presents to the ED with left foot pain. 1. Hypoglycemia in DM II * Home Meds: Glipizide & Metformin * Will hold Glipizide and let PCP restart later * Continue Metformin * HgA1C: 6.7% last week * Mild SSI * Accuchecks Q4H * Hypoglycemia Protocol 2. Osteomyelitis & PVD * s/p amputation last week * Currently on Bactrim and Cipro * WC consulted * Will monitor * Currently no WBC 3. KEMAR- Resolvign Cre: 1.35 > 1.14 > 1.14 * Last week: 1.15 initial trended down to 1.03 * Will monitor 4. HLD * Continue home meds: Lovastatin 5. CAD * Continue home meds: ASA 6. HTN * Currently not on medications * Will monitor Code Status: Full Activity: Ambulate with Assist, Fall precautions Diet: CC 2000 VTE PPx: Lovenox 30 GI PPx: Famotidine PCP: Kandi- Dr. Jakbo Cano Dispo: Medical obs, will monitor sugars and adjust medications. Likely d/c today. Expected LOS < 48H. Addendum - Attending - Attending Attestation Date/Time: 10/26/19 1317 I personally evaluated the patient and discussed the management with Dr. Lubin I agree with the History, Examination, Assessment and Plan documented above with any addition or exceptions noted below. Glucose WNL. d/c sulfonurea. D/c home today with f/u w/ PCP in 1 week to discuss further management of patient's DM management.
[2019-10-26] MEDS: Sulfameth/Trimethoprim DS 800-160mg TAB PO SCH (08:42)
[2019-10-26] MEDS: Carvedilol 6.25 MG TAB PO SCH (08:43)
[2019-10-26] MEDS: metFORMIN 500 MG TAB PO SCH (08:43)
[2019-10-26] MEDS: Famotidine 20 MG TAB PO SCH (08:44)
[2019-10-26] MEDS: Enoxaparin Sodium 30 MG/0.3 ML SYRINGE SC SCH (08:44)
[2019-10-26] MEDS ORDERED: Aspirin 81 mg Enteric Coated Tablet PO SCH (09:00)
[2019-10-26] MEDS ORDERED: Multivit, Therapeutic 1 TAB PO SCH (09:00)
[2019-10-26] MEDS ORDERED: Non-Formulary Item 1 EACH (Multivitamin [Daily Multiple Vitamin] 1 TAB) PO SCH (09:00)
[2019-10-26 11:20] VITALS: BP 129/73; TEMP 98.1
--- NOTE | 2019-10-27 03:05 | DIS ---
DATE OF ADMISSION: 10/25/2019 DATE OF DISCHARGE: 10/26/2019 ADMITTING ATTENDING: Patrice Nelson MD DISCHARGE ATTENDING: Patrice Nelson MD CONSULTS: None. PROCEDURES: None. DISCHARGE MEDICATIONS: We discontinued his home glipizide. He should still continue his home metformin and continue all his other home medications. DISCONTINUED MEDICATIONS: 1. Tylenol. 2. Aspirin. 3. Coreg. 4. Cipro. 5. Lovenox. 6. Pepcid. 7. Glucagon. 8. Humalog. 9. Senokot. 10. Simvastatin. PRIMARY DIAGNOSES: 1. Hypoglycemia in a type 2 diabetic. 2. Osteomyelitis. 3. Peripheral vascular disease. 4. Acute kidney injury. SECONDARY DIAGNOSES: 1. Hyperlipidemia. 2. Coronary artery disease. 3. Hypertension. HISTORY OF PRESENT ILLNESS: Patient is a 79-year-old male with past medical history of diabetes, type 2; hypertension; hyperlipidemia; coronary artery disease; peripheral vascular disease; heart failure with reduced ejection fraction with AICD; [place], status post CABG; and prostate cancer, status post radiation, who presents as a transfer [facility] who had altered mental status and was found to be hypoglycemic to 43. He does not remember anything until waking up in the ambulance. Earlier on 10/25/2019, he said his must have called EMS. He said they checked his blood sugar and found it to be 43. At [facility], the patient was given an amp of D50 after finding blood glucose of 43 and it increased to 173. His workup was a CT that was negative and the EKG that showed biventricular pacing, and creatinine of 1.35 and a CK of 377. 1. Hypoglycemia in a type 2 diabetic. * Glipizide was held and will not be restarted during the hospital stay due to hypoglycemic event. * Metformin can be continued. * A1c last week during hospitalization was 6.7. * He was on a mild sliding scale during hospital stay and had a hypoglycemic protocol. 2. Osteomyelitis and peripheral vascular disease. He is status post three left toe amputations last week. * Currently on Bactrim and Cipro. * Wound Care was consulted and changed his bandages. * Follow-up appointment scheduled with Dr. Mcgovern next week for further management. * No white count at this time. 3. KEMAR- Resolved. Creatinine was 1.35 on admission and trended to 1.14. * Last week, he had a creatinine of 1.15 that trended down to 1.03. 4. Hyperlipidemia. * Continue home lovastatin. 5. Coronary artery disease. * Continue home aspirin. 6. Hypertension. * Currently not on any medications, but was well controlled during hospital stay. DISPOSITION: Stable. DISCHARGE INSTRUCTIONS: 1. Location. Home. 2. Diet. Diabetic. 3. Activity: As tolerated. 4. Followup. Follow up with Dr. Cano, PCP, in 7 days of discharge and [facility] with Diabetes outpatient. 5. Recommendation from dietitian was to follow up with an outpatient dietitian. Job ID: [id number] JENNIFFER
== END 2019-10-26 13:25 | disposition home or self-care (01) ==
LOC: T4-B 07:35
PROVIDERS: ADMIT Family Medicine; ATTEND Family Medicine
DX: E11.649 Type 2 diabetes mellitus with hypoglycemia without coma (principal); M86.9 Osteomyelitis, unspecified; E11.51 Type 2 diabetes mellitus with diabetic peripheral angiopathy without gangrene; N17.9 Acute kidney failure, unspecified; I25.10 Atherosclerotic heart disease of native coronary artery without angina pectoris; I11.0 Hypertensive heart disease with heart failure; I50.30 Unspecified diastolic (congestive) heart failure; E78.5 Hyperlipidemia, unspecified; I25.2 Old myocardial infarction; Z85.46 Personal history of malignant neoplasm of prostate; Z87.891 Personal history of nicotine dependence; Z79.2 Long term (current) use of antibiotics; Z79.82 Long term (current) use of aspirin; Z79.84 Long term (current) use of oral hypoglycemic drugs; Z79.899 Other long term (current) drug therapy; Z88.1 Allergy status to other antibiotic agents; Z95.810 Presence of automatic (implantable) cardiac defibrillator; Z95.1 Presence of aortocoronary bypass graft; Z89.422 Acquired absence of other left toe(s)
CPT/HCPCS: 80048; 82962 ×2; 85025; 96372 ×2; 96374; 96376; 97139 ×2; G0378 ×2; 36415; 36416; J1650

== ENCOUNTER 2020-12-18 11:55 | Outpatient (CLI) | payer MEDICARE ==
[2020-12-18] MEDS ORDERED: Iopamidol 370 76% 100 ML VIAL ONE (12:12)
[2020-12-18 13:02] LABS: Estimated GFR-MDRD - POC Greater than 90
== END 2020-12-18 11:56 | disposition home or self-care (01) ==
LOC: BICCT 11:55
PROVIDERS: ATTEND Internal Medicine Cardiovascular Disease
DX: S81.802A Unspecified open wound, left lower leg, initial encounter (principal)
CPT/HCPCS: 75635; 82565; Q9967

== ENCOUNTER 2021-01-14 10:37 | Outpatient (CLI) | payer MEDICARE ==
[2021-01-14 12:42] LABS: Hemoglobin 12.1 g/dL (13.5-17.5); Mean Corpuscular HGB CONC 33.7 g/dL (32.0-36.0); Mean Corpuscular Hemoglobin 30.1 pg (27.0-33.0); Mean Corpuscular Volume 89.3 fl (81.2-95.1); Mean Platelet Volume 10.7 fl (7.4-10.4); Platelet Count 132 10x3/uL (150-450); RBC Distribution Width 13.7 % (11.5-14.5); Red Blood Cell (RBC) Count 4.02 10x6/uL (4.32-5.72); White Blood Cell (WBC) Count 5.7 10x3/uL (3.5-10.5)
[2021-01-14 13:10] LABS: Anion Gap 16 mmol/L (10-20); BUN (Urea Nitrogen) 23 mg/dL (8.4-25.7); Calc. Creatinine Clearance 0 mL/min (70-130); Carbon Dioxide 26 mmol/L (23-31); Chloride 103 mmol/L (98-107); Glucose 66 mg/dL (83-110); Potassium 4.1 mmol/L (3.5-5.1); Sodium 141 mmol/L (136-145)
[2021-01-14 21:48] LABS: SARS-CoV-2 PCR by NAA Not Detected (NotDetected)
== END 2021-01-14 10:38 | disposition home or self-care (01) ==
LOC: LABBT 10:37
PROVIDERS: ATTEND Thoracic Surgery (Cardiothoracic Vascular Surgery)
DX: Z01.812 Encounter for preprocedural laboratory examination (principal); Z20.822 Contact with and (suspected) exposure to COVID-19; I73.9 Peripheral vascular disease, unspecified
CPT/HCPCS: 80048; 85027; U0003; U0005; 87635

== ENCOUNTER 2021-01-14 10:45 | Inpatient (IN) | payer MEDICARE ==
[2021-01-16 11:37] VITALS: BMI 23.3
[2021-01-17] MEDS ORDERED: Levofloxacin 500 mg/D5W 100 ml Premix Bag ONE (09:17)
[2021-01-17] MEDS ORDERED: Clindamycin/D5W 900 mg/50 ml Premix Bag ONE ×2 (09:17→16:13)
[2021-01-17] MEDS ORDERED: Heparin 5,000 UNITS/ML VIAL ONE (09:25)
[2021-01-17] MEDS ORDERED: Protamine Sulfate 50 MG/5 ML VIAL ONE (09:25)
[2021-01-17] MEDS ORDERED: Midazolam HCl 2 mg/2 ml Vial ONE (09:33)
[2021-01-17] MEDS ORDERED: Fentanyl 100 MCG/2 ML VIAL ONE (09:33)
[2021-01-17] MEDS ORDERED: Ketorolac Tromethamine 30 MG/ML VIAL ONE (10:07)
[2021-01-17] MEDS ORDERED: ePHEDrine Sulfate 50 MG/10 ML VIAL ONE (10:07)
[2021-01-17] MEDS ORDERED: Lidocaine 1% PF 5 ML VIAL ONE (10:07)
[2021-01-17] MEDS ORDERED: Ondansetron PF 4 MG/2 ML Vial ONE (10:07)
[2021-01-17] MEDS ORDERED: PHENYLEPHRINE-NS 100 MCG/ML 10 ML SYRINGE ONE (10:07)
[2021-01-17] MEDS ORDERED: Dexamethasone 20 MG/5 ML VIAL ONE (10:07)
[2021-01-17] MEDS ORDERED: Rocuronium Bromide 10 MG/ML (10ML VIAL) ONE (10:07)
[2021-01-17] MEDS ORDERED: PROPOFOL 200 MG/20 ML VIAL ONE (10:07)
[2021-01-17] MEDS ORDERED: Ondansetron HCl/PF 4 MG/2 ML Vial IVP PRN (11:01)
[2021-01-17] MEDS ORDERED: SUGAMMADEX SODIUM 200 MG/2 ML VIAL ONE (11:42)
[2021-01-17] MEDS ORDERED: HYDROcodone/Acetaminophen 5/325 mg Tablet PO PRN ×2 (17:22)
[2021-01-17] MEDS ORDERED: traMADol HCl 50 MG TAB PO PRN (17:22)
[2021-01-17] MEDS ORDERED: Insulin Regular 300 UNITS/3 ML VIAL SC PRN (17:22)
[2021-01-17] MEDS ORDERED: Acetaminophen 325 MG TAB PO PRN (17:22)
[2021-01-17] MEDS ORDERED: Ondansetron PF 4 MG/2 ML Vial IVP PRN (17:22)
[2021-01-17] MEDS: Lactated Ringer's 1,000 ML IV SCH (17:45)
[2021-01-17] MEDS ORDERED: metFORMIN 500 MG TAB PO SCH (17:45)
[2021-01-17] MEDS: Lisinopril 10 MG TAB PO SCH (20:33)
[2021-01-17] MEDS: Clindamycin/D5W 900 MG in Premix Bag 1 BAG IVPB SCH (20:36)
[2021-01-17] MEDS ORDERED: Enoxaparin Sodium 30 MG/0.3 ML SYRINGE SC SCH (21:00)
[2021-01-18] MEDS: Clindamycin/D5W 900 MG in Premix Bag 1 BAG IVPB SCH ×2 (03:35→08:58)
[2021-01-18] MEDS ORDERED: metFORMIN 500 MG TAB PO SCH (08:00)
[2021-01-18] MEDS: Lisinopril 10 MG TAB PO SCH (08:57)
[2021-01-18] MEDS ORDERED: Aspirin Chewable 81 MG TAB PO SCH (09:00)
[2021-01-18] MEDS ORDERED: Polyethylene Glycol 3350 17 GM Packet PO SCH (09:00)
[2021-01-18] MEDS: Lactated Ringer's 1,000 ML IV SCH (09:00)
[2021-01-18 12:17] VITALS: BP 130/75; TEMP 97.9
== END 2021-01-18 13:48 | disposition home or self-care (01) | DRG 254 ==
LOC: SURG A 01-17 07:33 → EDSTATUS 01-17 10:45 → SURG B 01-17 17:16
PROVIDERS: ADMIT Thoracic Surgery (Cardiothoracic Vascular Surgery); ATTEND Thoracic Surgery (Cardiothoracic Vascular Surgery)
PROC: 04CK0ZZ Extirpation of Matter from Right Femoral Artery, Open Approach (ICD-10-PCS; principal; 2021-01-17)
PROC: 04UK0KZ Supplement Right Femoral Artery with Nonautologous Tissue Substitute, Open Approach (ICD-10-PCS; 2021-01-17)
DX: E11.51 Type 2 diabetes mellitus with diabetic peripheral angiopathy without gangrene (principal); Z20.822 Contact with and (suspected) exposure to COVID-19; I10 Essential (primary) hypertension; I25.10 Atherosclerotic heart disease of native coronary artery without angina pectoris; E78.5 Hyperlipidemia, unspecified; I70.249 Atherosclerosis of native arteries of left leg with ulceration of unspecified site; I70.239 Atherosclerosis of native arteries of right leg with ulceration of unspecified site; Z79.899 Other long term (current) drug therapy; Z88.1 Allergy status to other antibiotic agents; Z79.84 Long term (current) use of oral hypoglycemic drugs; Z95.810 Presence of automatic (implantable) cardiac defibrillator; Z95.1 Presence of aortocoronary bypass graft; Z90.49 Acquired absence of other specified parts of digestive tract; Z89.432 Acquired absence of left foot; Z89.431 Acquired absence of right foot; Z81.1 Family history of alcohol abuse and dependence; Z83.3 Family history of diabetes mellitus; Z82.3 Family history of stroke; Z80.9 Family history of malignant neoplasm, unspecified; Z87.891 Personal history of nicotine dependence
CPT/HCPCS: 36416; 80048; 85027; 86850; 86900; 86901; 87635; J1100; J1642; J1644; J1650; J1885; J1956; J2250; J2405; J2704; J2720; J3010; J3490; U0003; U0005